=== PATIENT | female | born 1985 | race Caucasian/White ===

== ENCOUNTER 2024-05-16 11:06 | Emergency (ER) | payer OTHER ==
[2024-05-16 11:28] VITALS: RESP 18
[2024-05-16] MEDS: IBUPROFEN 600 MG TAB PO STA (12:06)
[2024-05-16] MEDS: CYCLOBENZAPRINE 10 MG TAB PO STA (12:07)
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
[2024-05-16] MEDS: ACETAMINOPHEN TAB 500 MG TAB PO STA (12:29)
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
[2024-05-16 13:27] VITALS: BP 112/63; PULSE 95; TEMP 98.1
== END 2024-05-16 13:25 | disposition home or self-care (01) ==
LOC: SUPCPDRO 11:06 → EC 11:06
DX: S22.31XA Fracture of one rib, right side, initial encounter for closed fracture (principal); S83.92XA Sprain of unspecified site of left knee, initial encounter; V89.2XXA Person injured in unspecified motor-vehicle accident, traffic, initial encounter; Y92.411 Interstate highway as the place of occurrence of the external cause
CPT/HCPCS: 99284